=== PATIENT | male | born 1955 | race Caucasian/White ===

== ENCOUNTER 2017-11-29 15:35 | Emergency (ER) ==
[2017-11-29 15:47] VITALS: BP 138/86; TEMP 98.5; BMI 25.7
--- NOTE | 2017-11-29 16:06 | ED.PDOC ---
General ED Provider: Dr. TRACY COLLADO Chief Complaint: Hand Pain/Injury Stated Complaint: unable to extend left third finger Time Seen by Physician: 15:40 Mode of Arrival: Walk-In Information Source: Patient Exam Limitations: No limitations Primary Care Provider: BRENDA BENNETT Nursing and Triage Documentation Reviewed and Agree: Yes Reviewed sepsis parameters & appropriate labs ordered?: Yes System Inflammatory Response Syndrome: Not Applicable Sepsis Protocol: For patient's 13 years and over: Temp is 96.8 and below OR 101 and greater Pulse >90 BPM Resp >20/minute Acutely Altered Mental Status Are patient's symptoms suggestive of a new infection, such as: -Pneumonia -Skin, Soft Tissue -Endocarditis -UTI -Bone, Joint Infection -Implantable Device -Acute Abdominal Infection -Wound Infection -Meningitis -Blood Stream Catheter Infection -Unknown System Inflammatory Response Syndrome: Not Applicable Musculoskeletal Complaint Exam - Hand/Wrist Complaint/Exam Location of Pain: Reports: Left, Digit #3 Mechanism of Injury: Reports: No known trauma, Other (Patient is unable to fully extend the left third finger. Denies any form of trauma. ) Onset/Duration: Today Symptoms Are: Still present Onset of Pain: Reports: Hours Initial Severity: Mild Current Severity: Mild Location: Reports: Discrete (Third finger only) Character: Reports: Unable to describe Alleviating: Reports: None Aggravating: Reports: Movement Associated Signs and Symptoms: Denies: Swelling, Redness, Bruising, Fever, Weakness, Numbness, Tingling Dominant Hand: Right Related Surgical History: Reports: None Hand/Wrist Findings: Present: Ligamentous instability. Absent: Swelling, Ecchymosis, Abnormal contour, Rotation, Tinel's Sign, Phalen's Sign, Laceration , Nail avulsion, Subungal hematoma, Erythema, Warmth, Blisters, Foreign body Tenderness: Absent: Radius, Ulna, Snuff box, Carpal, Metacarpal, Phalanx Differential Diagnoses: Other (Extensor tendon rupture, third finger.) Review of Systems - Review Of Systems Constitutional: Reports: No symptoms Eyes: Reports: No symptoms Ears, Nose, Mouth, Throat: Reports: No symptoms Respiratory: Reports: No symptoms Cardiac: Reports: No symptoms GI: Reports: No symptoms : Reports: No symptoms Musculoskeletal: Reports: Other (Limited movement, extension of left third finger) Skin: Reports: No symptoms Neurological: Reports: No symptoms Endocrine: Reports: No symptoms Hematologic/Lymphatic: Reports: No symptoms All Other Systems: Reviewed and Negative Past Medical History - Past Medical History Previously Healthy: Yes Endocrine: Reports: None Cardiovascular: Reports: None Respiratory: Reports: None Hematological: Reports: None Gastrointestinal: Reports: None Genitourinary: Reports: None Neuro/Psych: Reports: None Musculoskeletal: Reports: None Cancer: Reports: None - Surgical History General Surgical History: Reports: None - Family History Family History: Reports: None - Social History Smoking Status: Never smoker Hx Substance Use: No Alcohol Screening: None Physical Exam - Physical Exam Appearance: Well-appearing, No pain distress, Well-nourished Eyes: MIKAELA, EOMI, Conjunctiva clear ENT: Ears normal, Nose normal, Oropharynx normal Respiratory: Airway patent, Breath sounds clear, Breath sounds equal, Respirations nonlabored Cardiovascular: RRR, Pulses normal, No rub, No murmur GI/: Soft, Nontender, No masses, Bowel sounds normal, No Organomegaly Musculoskeletal: Limited ROM (Limited motion primarily on extension of the left third finger. The involved finger is entirely in the normal grossly. Sensation of entire left hand is normal. Joint stable.) Skin: Warm, Dry, Normal color Neurological: Sensation intact, Motor intact, Reflexes intact, Cranial nerves intact, Alert, Oriented Psychiatric: Affect appropriate, Mood appropriate Critical Care Note - Critical Care Note Total Time (mins): 0 Course - Course Orders, Labs, Meds: Orders Category Date Time Status HAND, LEFT 3 VIEWS Stat RADS 11/29/17 15:52 Taken Vital Signs: Temp Pulse Resp BP Pulse Ox 11/29/17 15:35 98.5 F 67 20 138/86 94 L Departure - Departure Time of Disposition: 17:15 Disposition: HOME SELF-CARE Discharge Problem: Injury of extensor tendon of hand Instructions: Arthralgia (ED) Condition: Good Pt referred to PMD for follow-up: Yes (Patient is urged to follow up w) IPMP verified?: No Additional Instructions: Please call your Family Physician as soon as possible to schedule a follow-up appointment. I explained the possibility of extensor tendon rupture or partially ruptured tendon with patient and family. The involved finger is splinted dorsally in full extension. Patient is urged to follow-up with PMD for orthopedic referral. Allergies/Adverse Reactions: Allergies No Known Allergies Allergy (Unverified 11/29/17 15:45) Home Medications: Ambulatory Orders Lisinopril [Zestril] 40 mg PO DAILY 11/29/17 Disposition Discussed With: Patient
--- NOTE | 2017-11-29 16:33 | DI ---
EXAM: Radiographs, left hand HISTORY: Inability to extend left third finger. COMPARISON: None available. TECHNIQUE: Three views. FINDINGS: Bone mineralization is normal. There is no acute fracture or dislocation. Old healed fra cture deformity of the base of the first metacarpal noted. Mild joint space narrowing marginal osteo phyte formation noted throughout the hand and wrist. No erosive changes are seen. IMPRESSION: 1. No acute fracture or dislocation. 2. Mild osteoarthritis.
== END 2017-11-29 16:38 | disposition home or self-care (01) ==
LOC: ED 15:35
DX: S56.404A Unspecified injury of extensor muscle, fascia and tendon of left middle finger at forearm level, initial encounter (principal)
CPT/HCPCS: 99283